=== PATIENT | female | born 1970 | race Caucasian/White ===

== ENCOUNTER 2018-04-03 14:03 | Outpatient (CLI) | payer MEDICARE ==
[~2018-04-03] VITALS: Ht 170.2 cm; Wt 90.7 kg
[2018-04-03] MEDS ORDERED: AMLO5TAB9 PO (16:01)
[2018-04-03] MEDS ORDERED: ATOR10TA66 PO (16:01)
[2018-04-03] MEDS ORDERED: LACT10SO PO (16:01)
[2018-04-03] MEDS ORDERED: ETOD600T PO (16:01)
[2018-04-03] MEDS ORDERED: VARE1TAB22 PO (16:01)
[2018-04-03] MEDS ORDERED: AMIT25TA9 PO (16:01)
[2018-04-03] MEDS ORDERED: HYDR50TA76 PO (16:01)
[2018-04-03] MEDS ORDERED: ARIP2TAB3 PO (16:01)
[2018-04-03] MEDS ORDERED: PARO40TA3 PO (16:01)
[2018-04-03] MEDS ORDERED: ESTR1TAB24 PO (16:01)
[2018-04-03] MEDS ORDERED: BUDE10.2 IH (16:01)
[2018-04-03] MEDS ORDERED: LUBI24CA6 PO (16:01)
[2018-04-03] MEDS ORDERED: FLUT9.9S NS (16:01)
[2018-04-03] MEDS ORDERED: RT-ALBUINH IH (16:01)
[2018-04-03] MEDS ORDERED: TOPI50TA13 PO (16:01)
[2018-04-03] MEDS ORDERED: DULO30CA3 PO (16:01)
[2018-04-03] MEDS ORDERED: ENAL20TA PO (16:01)
[2018-04-03] MEDS ORDERED: PANT40TA3 PO (16:01)
== END 2018-04-03 16:09 | disposition home or self-care (01) ==
LOC: PREOP 14:03
PROVIDERS: ATTEND Orthopaedic Surgery
DX: Z01.818 Encounter for other preprocedural examination (principal)

== ENCOUNTER 2018-05-03 05:30 | Outpatient (CLI) | payer MEDICARE ==
[~2018-05-03] VITALS: Ht 170.2 cm; Wt 90.7 kg
[~2018-05-03 05:30] MED LIST: AMIT25TA9 PO; AMLO5TAB9 PO; ARIP2TAB3 PO; ATOR10TA66 PO; BUDE10.2 IH; DULO30CA3 PO; ENAL20TA PO; ESTR1TAB24 PO; ETOD600T PO; FLUT9.9S NS; HYDR50TA76 PO; LACT10SO PO; LUBI24CA6 PO; PANT40TA3 PO; PARO40TA3 PO; RT-ALBUINH IH; TOPI50TA13 PO; VARE1TAB22 PO
== END 2018-05-03 12:08 | disposition home or self-care (01) ==
LOC: PREOP 05:30
PROVIDERS: ATTEND Surgery Pediatric Surgery
DX: Z01.818 Encounter for other preprocedural examination (principal)

== ENCOUNTER 2018-05-07 07:38 | Day surgery (SDC) | payer MEDICARE, OTHER ==
[~2018-05-07] VITALS: Ht 170.2 cm; Wt 90.3 kg
[2018-05-07 08:00] VITALS: BP 126/94
[2018-05-07] MEDS ORDERED: CATHETER FLUSH 10 ML SYR IV PRN (08:00)
[2018-05-07] MEDS ORDERED: CLINDAMYCIN 600 MG/50 ML IVPB 50 ML IV ONE (08:00)
[2018-05-07] MEDS: LACTATED RINGERS 1,000 ML IV PRN ×2 (08:00→10:00)
[2018-05-07] MEDS ORDERED: BUP/EPI 0.5% 1:200,000 (SENSORCAINE) 30 ML VIAL ONE (08:15)
[2018-05-07] MEDS ORDERED: VANCOMYCIN 1000 MG/VIAL ONE (08:15)
[2018-05-07] MEDS ORDERED: BACITRACIN 100,000 UNIT/NS 1000 ML POUR BOTTLE IR ONE ×2 (08:15)
[2018-05-07] MEDS ORDERED: MIDAZOLAM 2 MG/2 ML (VERSED) VIAL ONE (08:45)
[2018-05-07] MEDS ORDERED: fentaNYL INJECTION 100 MCG/2 ML AMP ONE (08:46)
[2018-05-07] MEDS ORDERED: SEVOFLURANE (ULTANE) 15 ML INHAL SOLN ONE ×2 (09:46)
[2018-05-07] MEDS ORDERED: LIDOCAINE PF 2% 5 ML (XYLOCAINE) VIAL ONE (09:46)
[2018-05-07] MEDS ORDERED: proPOfol 200 MG/20 ML (DIPRIVAN) VIAL IV ONE (09:46)
[2018-05-07] MEDS ORDERED: GLYCOPYRROLATE 0.2 MG/ML (ROBINUL) 2 ML VIAL ONE (09:46)
[2018-05-07] MEDS ORDERED: NEOSTIGMINE 1 MG/ML 5 ML SYRINGE ONE (09:46)
[2018-05-07] MEDS ORDERED: ROCURONIUM 10 MG/ML 5 ML SYRINGE IV ONE (09:46)
[2018-05-07] MEDS ORDERED: ONDANSETRON 4 MG/2 ML (SDV) Z0FRAN ONE (09:46)
[2018-05-07] MEDS ORDERED: OXYC1TAB87 PO (10:03)
--- NOTE | 2018-05-07 10:05 | Discharge Inst-Simple/Standard ---
Discharge Inst-Standard Discharge Medications New, Converted or Re-Newed RX: RX on Chart Patient Instructions/Follow Up Plan of Care/Instructions/FU: follow up in clinic in 2 weeks dont bend lift twist push pull or reach 5lb weight restriction keep incisons covered clean and dry Activity as Tolerated: No Discharge Diet: Regular Diet Return to The [facility] For: fever chills shortness of breath chest pain new onset weakness or numbness OBI MARSHALL May 07, 2018 10:05
[2018-05-07] MEDS ORDERED: morphine INJ 10 MG/ML 1ML (SYR OR VIAL) IVP ONE (10:15)
[2018-05-07] MEDS ORDERED: MEPERIDINE (DEMEROL) INJ 50 MG/ML IVP ONE (10:15)
[2018-05-07] MEDS ORDERED: ONDANSETRON 4 MG/2 ML (SDV) Z0FRAN IVP PRN (10:15)
[2018-05-07] MEDS ORDERED: morphine INJ 10 MG/ML 1ML (SYR OR VIAL) ONE (10:19)
[2018-05-07 11:10] VITALS: BP 117/86
--- NOTE | 2018-05-07 11:13 | Diagnostic Imaging Report ---
INDICATION: Spinal cord stimulator placement. Fluoroscopic guidance. Total fluoroscopy time: 11.9 seconds Total number of fluoroscopic images saved: 1 FINDINGS: Single intraoperative image intensifier view of the thoracic spine was obtained during spinal cord stimulator placement. Image provided shows posterior tissue retractors and spinal cord stimulator. Stimulator appears to project over the T9-T10 levels, although evaluation is suboptimal given the cone-down nature of the image. Please note, interpreting radiologist was not present during the procedure. IMPRESSION: 1. Fluoroscopic guidance provided during spinal cord stimulator placement. Dictated by: Dictated on workstation # [id number]
[2018-05-07] MEDS ORDERED: oxyCODONE/APAP 5/325MG (PERCOCET 5) TABLET PO ONE (11:30)
[2018-05-07 11:37] VITALS: BP 122/87
[2018-05-07 12:10] VITALS: BP 114/88
--- NOTE | 2018-05-07 13:13 | Anesthesia-General Post-Op ---
General Patient Condition Mental Status/LOC: Same as Preop Cardiovascular: Satisfactory Nausea/Vomiting: Absent Respiratory: Satisfactory Pain: Controlled Complications: Absent Post Op Complications Complications None Follow Up Care/Instructions Patient Instructions None needed. Anesthesia/Patient Condition Patient Condition Patient is doing well, no complaints, stable vital signs, no apparent adverse anesthesia problems. No complications reported per nursing. NANCY OLIVIA CRNA May 07, 2018 13:13
--- NOTE | 2018-05-08 08:16 | OPERATIVE REPORT ---
DATE OF SERVICE: 05/07/2018 SURGEON: Fabricio Naik DO STORE LEAD: MALINDA Ritter. This is a medically necessary procedure. Assistance was necessary for retraction of vital neurovascular structures. Without an assistant signal maintainer, the procedure would not be possible. PREOPERATIVE DIAGNOSES: 1. Neuropathic pain syndrome. 2. Lumbar radiculopathy. 3. Chronic pain syndrome. POSTOPERATIVE DIAGNOSES: 1. Neuropathic pain syndrome. 2. Lumbar radiculopathy. 3. Chronic pain syndrome. PROCEDURES PERFORMED: 1. Placement of spinal cord stimulator paddle lead via thoracic laminotomy. 2. Placement of the pulse generator. 3. Complex programming. ESTIMATED BLOOD LOSS: Minimal. DRAIN PLACED: None. ANESTHESIA: General endotracheal anesthesia with local anesthetic. SPECIMEN SENT: None. HISTORY OF PRESENT ILLNESS: This is a very pleasant 48-year-old female, who presented to me after a very successful percutaneous trial. She did wish to proceed with placement of permanent spinal cord stimulator. She understood the risks and benefits. DESCRIPTION OF PROCEDURE: The patient was identified by name on wrist band in the preoperative holding area. The operative site was signed, consent was signed. SCDs were placed. Neuromonitoring was hooked up and antibiotics were started. She was taken to the operating room theater and placed under general endotracheal tube anesthesia and then transferred to the operating room table in the prone position. She was prepped and draped in the usual sterile fashion. A formal timeout was conducted. At this point, the pedicles were marked out under AP x-ray. I then made an incision over the midline at the thoracic levels, performed bilateral subperiosteal paraspinal muscular approach exposing the posterior elements of interest. I then used the [place] rongeur and high speed bur and Kerrison rongeurs to perform a laminotomy given the access to the epidural space. I then obtained the appropriate spinal cord stimulator paddle lead and I placed into the midline position over the target vertebra and then turned my attention to the pulse generator pocket. So, I made an incision over the left side flank over the beltline. I proceeded with blunt dissection in the subcutaneous plane to give me a pocket. I used a tunneler to tunnel the leads from the thoracic wound to the lumbar wound. I hooked up the pulse generator and finally tightened the lead. I buried the pulse generator in the pocket. I did a complex programming at this point to verify positioning of the lead on the spinal cord. To do this, we coordinated with the [employer] rep and the neuromonitoring tech to map out stimulation and ensured equal left and right lower extremity stimulation. I anchored the lead into the thoracic fascia. At this point, I irrigated the wound, maintained hemostasis and I closed the wound utilizing 0 Vicryl followed by 2-0 Vicryl followed by running 3-0 subcuticular stitch. Applied dressings. I took the patient to the PACU where she awoke without incident. She tolerated the procedure well. The plan at this time is to discharge the patient. I will see her back in two weeks. She knows to keep her wound clean and dry. She knows to avoid any overhead reaching to prevent paddle lead dislodgement. Please note that the instrumentation utilized through this procedure was [employer]. Job ID: [id number] DocumentID: [id number] Dictated Date: 05/08/2018 07:24:49 Pre Fabricator Date: 05/08/2018 08:15:38 Dictated By: FABRICIO NAIK DO
== END 2018-05-07 12:24 | disposition home or self-care (01) ==
LOC: SDC 07:38
PROVIDERS: ATTEND Orthopaedic Surgery
DX: M54.16 Radiculopathy, lumbar region (principal); G89.4 Chronic pain syndrome; Z11.2 Encounter for screening for other bacterial diseases; I10 Essential (primary) hypertension; J45.909 Unspecified asthma, uncomplicated; G47.33 Obstructive sleep apnea (adult) (pediatric); J44.9 Chronic obstructive pulmonary disease, unspecified; G40.909 Epilepsy, unspecified, not intractable, without status epilepticus; K21.9 Gastro-esophageal reflux disease without esophagitis; Z87.891 Personal history of nicotine dependence; Z79.899 Other long term (current) drug therapy; Z88.1 Allergy status to other antibiotic agents
CPT/HCPCS: 87081